=== PATIENT | male | born 1955 | race Caucasian/White ===

== ENCOUNTER → 2016-12-29 | Outpatient (CLI) | payer BC ==
[2016-12-29 09:48] LABS: BUN 17 mg/dL (7-18); GFR (ESTIMATED) 86 ML/MIN (>60)
== END ==
LOC: LAB 08:26
PROVIDERS: Nurse Practitioner Family
DX: E11.9 Type 2 diabetes mellitus without complications (principal); I10 Essential (primary) hypertension

== ENCOUNTER → 2017-10-18 | Outpatient (CLI) | payer BC | LOC: LAB 09:12 | DX: Z85.46 Personal history of malignant neoplasm of prostate (principal) ==